=== PATIENT | male | born 1990 | race Two or more races ===

== ENCOUNTER 2019-10-24 21:13 | Emergency (ER) | payer SELFPAY ==
[~2019-10-24] VITALS: Ht 180.3 cm; Wt 67.1 kg
[2019-10-24 21:26] VITALS: BP 122/79
--- NOTE | 2019-10-24 21:28 | NUR ---
ED Nurse Note: Patient walked in to ER c/o CP, cough x 20 days, stated had fever at home. NO N/V/D, AAO x4, VSS at this time.
--- NOTE | 2019-10-24 22:25 | NUR ---
ED Nurse Note: xr at bedside
[2019-10-24] MEDS ORDERED: Azithromycin 250mg tab ORAL ONE (22:30)
[2019-10-24] MEDS ORDERED: ALBUTEROL SULF8.5 G1 INH (22:38)
[2019-10-24] MEDS ORDERED: PREDNISONE20 MG ORAL (22:38)
[2019-10-24] MEDS ORDERED: ZITHROMAX250 MG ORAL (22:38)
[2019-10-24 22:40] VITALS: BP 122/79
--- NOTE | 2019-10-24 22:40 | NUR ---
ER DISCHARGE NOTE: Patient is cleared to be discharged per ERMD, pt is aox4, on room air, with stable vital signs. pt was given dc and prescription instructions, pt was able to verbalize understanding, pt id band removed without complications. pt is able to ambulate with steady gait. pt took all belongings.
--- NOTE | 2019-10-24 22:40 | Emergency Room Report ---
History of Present Illness General Chief Complaint: Upper Respiratory Illness Source: Patient Present Illness HPI This is a 29-year-old male with no past medical history who presents with chief complaint of cough and congestion for 15 to 20 days. Symptoms not improving. Worse with inspiration. Worse with lying flat. [place] chest pain because of the coughing. No nausea no vomiting. Denies any fever chills. No sick contact. Allergies: Coded Allergies: No Known Allergies (Unverified , 10/24/19) COVID-19 Screening Contact w/high risk pt: No Recent Travel to affected area: No Experienced COVID-19 symptoms?: Yes COVID-19 symptoms experienced: Fever (T>100.4F or >38C), Shortness of Breath, Cough Patient History Past Medical History: see triage record, old chart reviewed Past Surgical History: none Pertinent Family History: none Social History: Denies: smoking Immunizations: other Reviewed Nursing Documentation: PMH: Agreed; PSxH: Agreed Nursing Documentation-PMH Past Medical History: No Stated History Review of Systems Eye: Denies: eye pain, blurred vision ENT: Denies: ear pain, nose congestion, throat swelling Respiratory: Reports: cough, shortness of breath Cardiovascular: Reports: chest pain; Denies: palpitations Gastrointestinal: Denies: abdominal pain, diarrhea, nausea, vomiting Musculoskeletal: Denies: back pain, joint pain Skin: Denies: rash Neurological: Denies: headache, numbness Endocrine: Denies: increased thirst, increased urine Hematologic/Lymphatic: Denies: easy bruising All Other Systems: negative except mentioned in HPI Physical Exam Vital Signs Date Time Temp Pulse Resp B/P (MAP) Pulse Ox O2 Delivery O2 Flow Rate FiO2 10/24/19 21:23 98.4 76 20 122/79 (93) 97 Room Air Vitals normal Sp02 EP Interpretation: reviewed, normal General Appearance: well appearing, no apparent distress, alert Head: normocephalic, atraumatic Eyes: bilateral eye PERRL, bilateral eye EOMI ENT: hearing grossly normal, normal pharynx Neck: full range of motion, supple, no meningismus Respiratory: chest non-tender, lungs clear, normal breath sounds Cardiovascular #1: regular rate, rhythm, no murmur Gastrointestinal: normal bowel sounds, non tender, no mass, no organomegaly, no bruit, non-distended Musculoskeletal: back normal, normal range of motion, gait/station normal Psychiatric: mood/affect normal Medical Decision Making Diagnostic Impression: Primary Impression: Suspected 2019 novel coronavirus infection ER Course This patient presents with a cough this been ongoing for the last 2-3 weeks. I suspect that he has COVID 19 infection because symptoms been ongoing for 2 to 3 weeks and with admissible pandemic. He looks well however. He does not meet criteria for inpatient admission. Will discharge home with outpatient testing. Will cover with azithromycin. Because of his coughing, will add albuterol. Chest X-Ray Diagnostic Results Chest X-Ray Diagnostic Results : Chest X-Ray Ordered: Yes # of Views/Limited/Complete: 1 View Indication: Shortness of Breath EP Interpretation: Yes Interpretation: no consolidation, no effusion, no pneumothorax, no acute cardiopulmonary disease Impression: No acute disease Electronically Signed by: Israel Barnes MD Last Vital Signs Date Time Temp Pulse Resp B/P (MAP) Pulse Ox O2 Delivery O2 Flow Rate FiO2 10/24/19 21:26 98.4 20 122/79 97 Room Air 10/24/19 21:26 76 Status: unchanged Disposition: HOME, SELF-CARE Condition: Stable Scripts Albuterol Sulfate* (Albuterol Sulfate Hfa*) 8.5 Gm Hfa.aer.ad 2 PUFF INH Q4H, #1 INH Prov: Israel Barnes MD 10/24/19 Azithromycin* (ZITHROMAX*) 250 Mg Tablet 250 MG ORAL DAILY, #4 TAB Prov: Israel Barnes MD 10/24/19 Prednisone* (PREDNISONE*) 20 Mg Tablet 40 MG ORAL DAILY, #8 TAB Prov: Israel Barnes MD 10/24/19 Additional Instructions: Presume that you have COVID 19 infection. Practice isolation and good handwashing. Check the [facility] website for outpatient testing. ([email or web address]) Follow-up with your doctor in a week. Return if worse. Israel Barnes MD Oct 24, 2019 22:40
--- NOTE | 2019-10-24 23:15 | Diagnostic Imaging Report ---
EXAM: XR Chest, 1 View CLINICAL HISTORY: SOB TECHNIQUE: Frontal view of the chest. COMPARISON: No relevant prior studies available. FINDINGS: Lungs: Unremarkable. No consolidation. Pleural space: Unremarkable. No pneumothorax. Heart: Unremarkable. No cardiomegaly. Mediastinum: Unremarkable. Bones/joints: Unremarkable. IMPRESSION: Normal chest x-ray.
== END 2019-10-24 22:40 | disposition home or self-care (01) ==
LOC: EMR 21:59
DX: R05 Cough (principal); R50.9 Fever, unspecified; R06.02 Shortness of breath
CPT/HCPCS: 71045; 99283; J7512